=== PATIENT | female | born 1980 | race Caucasian/White ===

== ENCOUNTER 2019-12-28 00:13 | Outpatient (CLI) | payer BC, SELFPAY ==
[2019-12-28 17:44] LABS: SARS-CoV-2 RNA PCR Negative
== END 2019-12-28 00:14 | disposition home or self-care (01) ==
LOC: ANHCOVIDDT 00:14
PROVIDERS: PCP Family Medicine; Visit Provider Obstetrics & Gynecology
DX: Z01.812 Encounter for preprocedural laboratory examination (principal); Z20.828 Contact with and (suspected) exposure to other viral communicable diseases
CPT/HCPCS: 87635; C9803; U0003

== ENCOUNTER 2019-12-29 01:45 | Day surgery (SDC) | payer BC, SELFPAY ==
[2019-12-27 10:53] VITALS: BMI 22.3
--- NOTE | 2019-12-27 11:24 | PM.IMHP ---
H&P: HPI History of Present Illness Date/Time: 12/27/19 11:24 Chief complaint: Pelvic Pain/Irregular Bleeding/Anemia Narrative: Marlene Bryson is a 39 year old female who is admitted for laparoscopy hysteroscopy D&C she has had heavy bleeding with resultant anemia and was seen in the emergency department with a large multi-cystic lesion on the right. Her pain is severe and unrelenting she will undergo the above-named procedure. Risks and benefits reviewed Review of Systems Review of Systems: All systems reviewed & are unremarkable except as noted in HPI and below PMFSH Family History Family History Father Diabetes mellitus Mother Hypertension Social History Social History Smoking packs per day: 1 Smoking cigarettes per day: 20.0 Years smoked: 22 Smoking pack-years: 22.00 Smoking status: Current every day smoker Tobacco type: cigarettes Alcohol intake: never Spiritual care concerns: No Meds Home Medications and Allergies Home Medications Medication Instructions Recorded Confirmed Type alprazolam 1 mg tablet,extended 1 mg PO DAILY #30 tablet 08/18/19 12/27/19 Rx release 24 hr escitalopram oxalate 5 mg tablet 5 mg PO DAILY #90 tablet 08/22/19 12/27/19 Rx L.acid-L.casei-B.bif-B.jayjay-FOS 1 cap PO DAILY 12/27/19 12/27/19 History [Probiotic Blend] atenolol 50 mg PO DAILY PRN 12/27/19 12/27/19 History biotin 1 tablet PO DAILY 12/27/19 12/27/19 History cetirizine [Zyrtec] 10 mg PO DAILY 12/27/19 12/27/19 History cholecalciferol (vitamin D3) 125 mcg PO DAILY 12/27/19 12/27/19 History [Vitamin D3] ferrous sulfate [Iron (ferrous 325 mg PO DAILY 12/27/19 12/27/19 History sulfate)] omeprazole 40 mg PO DAILY 12/27/19 12/27/19 History tramadol 50 mg PO BID PRN 12/27/19 12/27/19 History Allergies Allergy/AdvReac Type Severity Reaction Status Date / Time Sulfa (Sulfonamide Allergy Unknown Skin Verified 12/27/19 10:54 Antibiotics) Reaction Exam Const: General: no acute distress Eyes: General: appearance normal, both eyes and all related structures Neck: Neck: supple and no JVD Thyroid: thyroid normal Resp: Effort & Inspection: normal respiratory effort Auscultation: clear to auscultation bilaterally Cardio: Rate: regular rate Rhythm: regular rhythm GI: Inspection: non-distended GI Palp: Yes Soft to palpation, No Tenderness to palpation present (GI) and No Guarding due to palpation present (GI) Auscultation: normal bowel sounds : General: Yes bladder normal to palpation External Female Exam: normal external appearance Speculum Exam - Cervix: normal appearance of the cervix Bimanual exam- vagina & uterus: uterine size normal and Cervical tenderness present Bimanual Exam- Adnexa, other: tender Skin: General skin exam: no rashes or lesions noted Extrem: General: normal to inspection and no edema Psych: Mental Status: mental status grossly normal Affect: normal affect Assessment and Plan Additional Plan Impression: Pelvic pain and heavy bleeding with resultant anemia Plan: Laparoscopy hysteroscopy dilatation curettage
[2019-12-29] VITALS (10 sets, daily range): BP systolic 80–121; BP diastolic 45–89; PULSE 56–103; RESP 10–20; TEMP 36.2–37.3; O2SAT 97–100
--- NOTE | 2019-12-29 06:52 | WPDHPUPDATE1 ---
History and Physical Update Update Date/Time: 12/29/19 06:52 History and Physical has been reviewed, including an updated exam of the patient. There are NO changes in the patient's condition. Risks, benefits, and alternatives have been discussed and questions answered. Patient agrees to proceed with procedure.
[2019-12-29] MEDS: ACETAMINOPHEN 500 MG TABLET 1000 MG PO (08:55)
--- NOTE | 2019-12-29 08:56 | WPDANESEPPF ---
Anes - Initial Pre Proc Eval Procedure: Operation Date: 12/29/19 10:00 Proposed Procedures p Diagnostic Laparoscopy, Hysteroscopy, Dilation And Curettage - Jairon Gauthier MD Date/Time: 12/29/19 08:56 Surgeon: Jairon Gauthier MD Pre Op Diagnosis: Pelvic Pain/Irregular Bleeding/Anemia Patient Data Age: 39 Gender: F Height: 1.63 m Weight: 60.9 kg Allergies Allergy/AdvReac Type Severity Reaction Status Date / Time Sulfa (Sulfonamide AdvReac Mild Rash Verified 12/29/19 08:48 Antibiotics) Home Medications Medication Instructions Recorded Confirmed Type alprazolam 1 mg tablet,extended 1 mg PO DAILY #30 tablet 08/18/19 12/29/19 Rx release 24 hr escitalopram oxalate 5 mg tablet 5 mg PO DAILY #90 tablet 08/22/19 12/29/19 Rx L.acid-L.casei-B.bif-B.jayjay-FOS 1 cap PO DAILY 12/27/19 12/29/19 History [Probiotic Blend] atenolol 50 mg PO DAILY PRN 12/27/19 12/29/19 History biotin 1 tablet PO DAILY 12/27/19 12/29/19 History cetirizine [Zyrtec] 10 mg PO DAILY 12/27/19 12/29/19 History cholecalciferol (vitamin D3) 125 mcg PO DAILY 12/27/19 12/29/19 History [Vitamin D3] ferrous sulfate [Iron (ferrous 325 mg PO DAILY 12/27/19 12/29/19 History sulfate)] omeprazole 40 mg PO DAILY 12/27/19 12/29/19 History tramadol 50 mg PO BID PRN 12/27/19 12/29/19 History hydrocodone-acetaminophen 1 tablet PO Q6H PRN #30 tablet 12/29/19 Rx Patient hx anesthesia problems: none Family hx anesthesia problems: none PMFSH Past Medical History Medical History (Updated 12/29/19 @ 08:53 by Jona Barrett DO) Anxiety GERD (gastroesophageal reflux disease) Palpitations Radiculopathy, cervical region Surgical History Surgical History (Updated 12/29/19 @ 08:53 by Jona Barrett DO) History of cholecystectomy Family History Family History Father Diabetes mellitus Mother Hypertension Social History Social History Smoking packs per day: 1 Smoking cigarettes per day: 20.0 Years smoked: 22 Smoking pack-years: 22.00 Smoking status: Current every day smoker Tobacco type: cigarettes Alcohol intake: never Spiritual care concerns: No Anes - Eval Final PreProcedure Day of Procedure 12/29/19 08:56 Patient weight: normal Heart: regular rate and rhythm Lungs: clear to auscultation and normal air movement Airway: Mallampati scale class III Neurological: alert and oriented Last oral intake: >/= 8 hours ASA classification: II Emergent: no Anesthetic plan: proceed Anesthesia type and monitoring: general ETT and standard monitoring Informed Consent: The patient's anesthetic plan and its attendant risks and benefits were discussed with the patient/family/POA. Questions were solicited and answers provided to the satisfaction of the patient/family/POA.
[2019-12-29] MEDS: KETOROLAC 15 MG/ML VIAL (*BKC) IV PUSH (09:06)
[2019-12-29] MEDS: LACTATED RINGERS 1,000 ML 30 ML IV CONT ×2 (09:11→11:35)
--- NOTE | 2019-12-29 10:47 | PM.PROC ---
Procedure Note - Detailed Date of procedure: 12/29/19 Pre-op diagnosis: Pelvic Pain/Irregular Bleeding/Anemia Surgeon: Jairon Gauthier MD Postop diagnosis pelvic pain / irregular bleeding with resultant anemia / right ovarian cyst / uterine polyp Procedure: Laparoscopic destruction of right ovarian cyst. Hysteroscopy/ polypectomy / dilatation and curettage EBL: 5Cc Anesthesia: General endotracheal Complications: None Findings: On laparoscopy normal-appearing tubes bilaterally. Large follicular cyst on the right which was drained of clear serous fluid. On hysteroscopy the uterine polyp was seen. The uterus sounded to 7cm. Thick endometrial tissue was seen. Normal plan fallopian tube ostia bilaterally. Description of procedure.: The patient was prepped draped normal sterile fashion placed in the dorsal lithotomy position. Under excellent general trach anesthesia weighted speculum placed in posterior fornix of the vagina. Anterior lip of the cervix was grasped with a single-tooth tenaculum. The Sellers's cannula was inserted to be used later for uterine manipulation. The bladder was emptied of 50cc of clear urine. His a weighted speculum was removed. The gloves were changed. An infraumbilical incision was made and the Veress needle passed in the abdomen. The abdomen was filled with CO2 gas [id number]. The 5mm trocar was advanced in the abdomen under direct visualization assuring injury. The patient was placed in Trendelenburg and a suprapubic incision made. 5mm trocar advanced in the abdomen under direct visualization assuring injury. The above findings were seen. Using total cautery on the right ovary ovary was opened in linear fashion drained of copious amounts of serous fluid. Hemostasis was assured. No other abnormalities were seen and irrigation was undertaken until clear. The lower site removed. The gas removed from the abdomen. Incisions closed with 4 glue. Attention was turned to the hysteroscopy. The uterus sounded to 7cm. Serial dilatation with fragmented dilators performed followed by passage of the 5mm visualizing hysteroscope. Normal saline was used as visualizing medium. The uterine polyp was seen at the fundus. This was grasped with a polyp forceps and removed piecemeal. No other abnormalities were seen. The uterus was then scraped over the entire 360? until a good grating sound was heard. When no further tissue could be removed instruments removed. All sponge, needle instrument counts were correct. There were no immediate complications the patient was awakened. She went to satisfactory to recovery in satisfactory condition. All sponge, needle, instrument counts were correct.
[2019-12-29] MEDS: ONDANSETRON INJ 4 MG/2 ML VIAL IV PUSH (11:33)
[2019-12-29] MEDS: fentaNYL CITRATE INJ (*CRX) 100 MCG/2 ML VIAL 25 MCG IV PUSH ×5 (11:35→11:57)
--- NOTE | 2019-12-29 12:43 | SUR.PHASEII ---
1230; PT AWAKE AND ALERT. SITTING IN RECLINER. DRINKING COFFEE. STATES PAIN 08/08. WILL EAT SOME CRACKERS THEN TAKE A PAIN PILL.
[2019-12-29] MEDS: oxyCODONE HCL (*CRX) 5 MG TAB IR PO (13:04)
--- NOTE | 2019-12-29 13:25 | SUR.PHASEII ---
1305; PT STATES SHE DOES NOT DO WELL WITH HYDROCODONE. CALLED DR ROWE. HE IS NOT IN THE HOSPITAL OR OFFICE. HE SAID TO CALL DR POSADA. 1320; DR POSADA PAGED.
--- NOTE | 2019-12-29 13:32 | SUR.PHASEII ---
SPOKE TO DR POSADA. HE WILL COME TO [facility] AND WRITE NEW SCRIPT. PT AND DENIA NOTIFIED
--- NOTE | 2019-12-29 13:54 | SUR.PHASEII ---
1350; DR POSADA GAVE PT A NEW PRESCRIPTION
== END 2019-12-29 13:53 | disposition home or self-care (01) ==
PROVIDERS: PCP Family Medicine; Visit Provider Obstetrics & Gynecology
PROC: 0UDB8ZZ Extraction of Endometrium, Via Natural or Artificial Opening Endoscopic (ICD-10-PCS; CPT 58558; principal; 2019-12-29 10:00)
DX: R10.2 Pelvic and perineal pain (principal); N93.9 Abnormal uterine and vaginal bleeding, unspecified; D64.9 Anemia, unspecified; N83.201 Unspecified ovarian cyst, right side; N84.0 Polyp of corpus uteri; K21.9 Gastro-esophageal reflux disease without esophagitis; F41.9 Anxiety disorder, unspecified; F17.210 Nicotine dependence, cigarettes, uncomplicated
CPT/HCPCS: 58558; 58662; 36415; 86850; 86900; 86901; 88305; A9270; J1100; J1170; J1885; J2250; J2405; J2704; J2710; J3010; J7030; J7120

== ENCOUNTER 2020-03-19 02:14 | Outpatient (CLI) | payer BC, SELFPAY ==
[2020-03-19 18:38] LABS: SARS-CoV-2 RNA PCR Negative
== END 2020-03-19 02:15 | disposition home or self-care (01) ==
LOC: ANHCOVIDDT 02:15
PROVIDERS: PCP Family Medicine; Visit Provider Obstetrics & Gynecology
DX: Z01.812 Encounter for preprocedural laboratory examination (principal); Z20.822 Contact with and (suspected) exposure to COVID-19
CPT/HCPCS: C9803; U0003; U0005

== ENCOUNTER 2020-03-19 10:42 | Outpatient (CLI) | payer BC, SELFPAY ==
[2020-03-19 11:09] LABS: Basophils Percent Auto 0.6 % (0.2-1.2); Eosinophils Percent Auto 0.1 % (0-4.4); Hematocrit 40.8 % (37.0-47.0); Hemoglobin 13.5 g/dL (12.0-15.0); Immature Granulocyte Absolute 0.02 K/mm3 (0.00-0.031); Immature Granulocyte Percent A 0.3 % (0-0.5); Lymphocytes Absolute Auto 1.94 K/mm3 (0.9-3.2); Lymphocytes Percent Auto 28.3 % (18.3-44.2); Mean Corpuscular HGB Conc 33.1 g/dl (32-36); Mean Corpuscular Hemoglobin 28.9 pg (26-34); Mean Corpuscular Volume 87.4 fl (80-100); Monocytes Absolute Auto 0.5 K/mm3 (0.1-0.6); Monocytes Percent Auto 6.6 % (2.6-8.5); Neutrophils Absolute Auto 4.4 K/mm3 (1.3-6.7); Neutrophils Percent Auto 64.1 % (45.5-73.1); Platelet Count Result 274 k/mm3 (150-375); Red Blood Count 4.67 M/mm3 (4.2-5.4); Red Cell Distribution Width 16.1 % (11.5-14.5); White Blood Count 6.9 K/mm3 (4.5-10.0)
== END 2020-03-19 10:43 | disposition home or self-care (01) ==
LOC: ANHSURGERY 10:44
PROVIDERS: PCP Family Medicine; Visit Provider Obstetrics & Gynecology
DX: D64.9 Anemia, unspecified (principal); Z01.812 Encounter for preprocedural laboratory examination
CPT/HCPCS: 36415; 85025; 86850; 86900; 86901

== ENCOUNTER 2020-03-22 00:49 | Day surgery (SDC) | payer BC, SELFPAY ==
[2020-03-15 15:58] VITALS: BMI 21.4
--- NOTE | 2020-03-19 10:58 | PM.IMHP ---
H&P: HPI History of Present Illness Date/Time: 03/19/20 10:58 Chief Complaint: pain Narrative: Marlene Bryson is a 39 year old female 3 para 2 who is admitted for robotic total vaginal tract me and bilateral salpingectomy. She has uterine prolapse pain dyspareunia irregular bleeding and has been refractory to other medical therapies. Risks and benefits reviewed including but not exclusive of , aspiration pneumonia, bleeding, transfusion, perforation to bowel, bladder, ureters, or other internal organs with need for open laparotomy. She had all questions answered. She asked to proceed Review of Systems Review of Systems: All systems reviewed & are unremarkable except as noted in HPI and below PMFSH Past Medical History Medical History Anxiety GERD (gastroesophageal reflux disease) Palpitations Radiculopathy, cervical region Surgical History Surgical History History of cholecystectomy Family History Family History Father Diabetes mellitus Mother Hypertension Social History Social History Smoking packs per day: 1 Smoking cigarettes per day: 20.0 Years smoked: 22 Smoking pack-years: 22.00 Smoking status: Current every day smoker Tobacco type: cigarettes Additional smoking assessment comments: 1ppd x 22 years cigarettes Alcohol intake: never Spiritual care concerns: No Meds Home Medications and Allergies Home Medications Medication Instructions Recorded Confirmed Type L.acid-L.casei-B.bif-B.jayjay-FOS 1 cap PO DAILY 12/27/19 03/15/20 History [Probiotic Blend] biotin 1 tablet PO DAILY 12/27/19 03/15/20 History cetirizine [Zyrtec] 10 mg PO DAILY 12/27/19 03/15/20 History cholecalciferol (vitamin D3) 125 mcg PO DAILY 12/27/19 03/15/20 History [Vitamin D3] ferrous sulfate [Iron (ferrous 325 mg PO BID 12/27/19 03/15/20 History sulfate)] omeprazole 40 mg PO DAILY 12/27/19 03/15/20 History alprazolam 1 mg tablet,extended 1 mg PO DAILY #30 tablet 01/30/20 03/15/20 Rx release 24 hr atenolol 50 mg PO DAILY 03/15/20 03/15/20 History escitalopram oxalate 5 mg PO DAILY 03/15/20 03/15/20 History potassium 20 mg PO DAILY 03/15/20 03/15/20 History tramadol 50 mg PO DAILY PRN 03/15/20 03/15/20 History tramadol 100 mg PO DAILY PRN 03/15/20 03/15/20 History Allergies Allergy/AdvReac Type Severity Reaction Status Date / Time Sulfa (Sulfonamide AdvReac Mild Rash Verified 03/15/20 15:29 Antibiotics) Exam Const: General: no acute distress Eyes: General: appearance normal, both eyes and all related structures Neck: Neck: supple and no JVD Thyroid: thyroid normal Resp: Effort & Inspection: normal respiratory effort Auscultation: clear to auscultation bilaterally Cardio: Rate: regular rate Rhythm: regular rhythm GI: Inspection: non-distended GI Palp: Yes Soft to palpation, No Tenderness to palpation present (GI) and No Guarding due to palpation present (GI) Auscultation: normal bowel sounds : General: Yes bladder normal to inspection External Female Exam: normal external appearance Speculum Exam - Vagina: normal appearance of the vagina Speculum Exam - Cervix: normal appearance of the cervix Bimanual exam- vagina & uterus: Uterus displaced (prolapse) Bimanual Exam- Adnexa, other: normal adnexae Skin: General skin exam: no rashes or lesions noted Extrem: General: normal to inspection and no edema Psych: Mental Status: mental status grossly normal Affect: normal affect Assessment and Plan Additional Plan impression: Pelvic pain/dyspareunia / irregular bleeding with anemia / uterine prolapse all refractory to medical therapy Plan: Robotic total vaginal hysterectomy and bilateral salpingectomies
[2020-03-22] VITALS (15 sets, daily range): BP systolic 91–146; BP diastolic 44–87; PULSE 50–85; RESP 10–18; TEMP 36.3–37.3; O2SAT 95–100
--- NOTE | 2020-03-22 06:30 | WPDHPUPDATE1 ---
History and Physical Update Update Date/Time: 03/22/20 06:30 History and Physical has been reviewed, including an updated exam of the patient. There are NO changes in the patient's condition. Risks, benefits, and alternatives have been discussed and questions answered. Patient agrees to proceed with procedure.
[2020-03-22] MEDS: ACETAMINOPHEN 500 MG TABLET 1000 MG PO (09:47)
[2020-03-22] MEDS: LACTATED RINGERS 1,000 ML 30 ML IV CONT ×3 (10:07→12:49)
[2020-03-22] MEDS: KETOROLAC 15 MG/ML VIAL (*BKC) IV PUSH (10:08)
--- NOTE | 2020-03-22 10:19 | WPDANESEPPF ---
Anes - Initial Pre Proc Eval Procedure: Operation Date: 03/22/20 11:30 Proposed Procedures p Robotic Assisted Total Vaginal Hysterectomy With Bilateral Salpingectomy - Jairon Gauthier MD Date/Time: 03/22/20 10:19 Surgeon: Jairon Gauthier MD Pre Op Diagnosis: Pelvic Pain, Dyspareunia,Irr.Bleeding, Anemia Patient Data Age: 39 Gender: F Height: 5 ft 4 in Weight: 61.6 kg Last Vital Signs Temp 99.1 F 03/22/20 10:05 Pulse 50 L 03/22/20 10:05 Resp 16 03/22/20 10:05 BP 91/44 L 03/22/20 10:05 Pulse Ox 100 03/22/20 10:05 Allergies Allergy/AdvReac Type Severity Reaction Status Date / Time Sulfa (Sulfonamide AdvReac Mild Rash Verified 03/22/20 09:41 Antibiotics) Home Medications Medication Instructions Recorded Confirmed Type L.acid-L.casei-B.bif-B.jayjay-FOS 1 cap PO DAILY 12/27/19 03/22/20 History [Probiotic Blend] biotin 1 tablet PO DAILY 12/27/19 03/22/20 History cetirizine [Zyrtec] 10 mg PO DAILY 12/27/19 03/22/20 History cholecalciferol (vitamin D3) 125 mcg PO DAILY 12/27/19 03/22/20 History [Vitamin D3] ferrous sulfate [Iron (ferrous 325 mg PO BID 12/27/19 03/22/20 History sulfate)] omeprazole 40 mg PO DAILY 12/27/19 03/22/20 History alprazolam 1 mg tablet,extended 1 mg PO DAILY #30 tablet 01/30/20 03/22/20 Rx release 24 hr atenolol 50 mg PO DAILY 03/15/20 03/22/20 History escitalopram oxalate 5 mg PO DAILY 03/15/20 03/22/20 History potassium 20 mg PO DAILY 03/15/20 03/22/20 History tramadol 50 mg PO DAILY PRN 03/15/20 03/22/20 History tramadol 50 mg tablet 50 mg PO Q6-8H PRN #60 tablet 03/20/20 Rx hydrocodone-acetaminophen [[place]] 1 tablet PO Q4H PRN #30 tablet 03/22/20 Rx Patient hx anesthesia problems: none Family hx anesthesia problems: none PMFSH Past Medical History Medical History Anxiety GERD (gastroesophageal reflux disease) Palpitations Radiculopathy, cervical region Surgical History Surgical History History of cholecystectomy Family History Family History Father Diabetes mellitus Mother Hypertension Social History Social History Smoking packs per day: 1 Smoking cigarettes per day: 20.0 Years smoked: 22 Smoking pack-years: 22.00 Smoking status: Current every day smoker Tobacco type: cigarettes Additional smoking assessment comments: 1ppd x 22 years cigarettes Alcohol intake: never Living arrangements: with family Spiritual care concerns: No Anes - Eval Final PreProcedure Day of Procedure 03/22/20 10:19 Patient weight: normal Heart: regular rate and rhythm Lungs: clear to auscultation Airway: Mallampati scale Neurological: alert and oriented Last oral intake: >/= 8 hours ASA classification: II Emergent: no Anesthetic plan: proceed Anesthesia type and monitoring: general ETT and standard monitoring Informed Consent: The patient's anesthetic plan and its attendant risks and benefits were discussed with the patient/family/POA. Questions were solicited and answers provided to the satisfaction of the patient/family/POA.
[2020-03-22] MEDS: ceFAZolin 2 GM/D5W 50 ML 2 GM/50 ML BAG IVPB (10:25)
--- NOTE | 2020-03-22 11:24 | P.OP_ITS ---
Procedure Note - Detailed Date of procedure: 03/22/20 Pre-op diagnosis: Pelvic Pain, Dyspareunia,Irr.Bleeding, Anemia Surgeon: Jairon Gauthier MD Postop diagnosis: Pelvic pain/dyspareunia/irregular bleeding resulting in anemia Procedure: Robotic total vaginal hysterectomy and bilateral salpingectomies Anesthesia: General endotracheal EBL: 20cc Complications:none Findings: Enlarged uterus/normal-appearing tubes ovaries Description of procedure: The patient was prepped and draped in the normal st erile fashion placed in the dorsal lithotomy position. Under excellent general endotracheal anesthesia weighted speculum was placed in the posterior fornix of vagina. Anterior lip of the cervix was grasped with a single-tooth tenaculum. Uterus sounded to9.5cm. Serial dilatation was performed followed by passes the 8. NIRALI and the 3. Cold cup. Next the 16 [place] catheter was placed in a bladde r drained of clear urine. The gloves were changed. A supraumbilical incision made in the Veress needle passed in the abdomen. Abdomen filled with CO2 gas [id number]. Five 8mm trocar advanced in the abdomen the downside visualized. No injury seen the patient placed in Trendelenburg and right and left lateral quadrant incisions made. 8mm trocars were advanced under direct visualization assuring no injury. A right upper quadrant incision made the 8mm trocar advanced under direct visualization assuring no injury. The robot was docked. Attention was turned to the console. The left round ligament was grasped, burned, cut. Anteriorly a bladder flap was formed by sharply dissecting the peritoneum and reflecting the bladder caudally to the opposite round ligament which was clamped, burned, cut. Next the left fallopian tube was grasped and it was dissected away from the ovary ovary complex. Following this the right fallopian tube was removed by sharply dissecting it from the underlying ovarian complex. Next the last left utero-ovarian ligament was skeletonized to conserve left ovary. This was clamped, burned, cut and brought to the level of the previously cut round ligament. In like fashion conserving the right ovary utero-ovarian ligament was clamped, burned, cut and brought to the level of previously cut round ligament. Next the cardinal and broad ligaments on the left were serially skeletonized brought down the lateral edge of the uterus they were clamped, burned, cut. This was taken down to the level of the uterine vessels which were large and tortuous. These were individually clamped,, cut. Next the cardinal and broad ligaments on the right wrist serially skeletonized and clamped, burned, cut and brought down the lateral edge of the uterus. The uterine vessels then individually clamped, burned, cut. Blanching the uterus was seen. A colpotomy incision was made in the uterus cervix and tubes removed through the vagina. Blood loss estimated [id number]. The vagina was closed with continuous running 0V lock from lateral edge to lateral edge to the midline. Irrigation undertaken to clear. All pedicles appeared dry. The robot was undocked. The gas removed from the abdomen. The trocars removed from the abdomen and the incisions closed with 4 Monocryl glue. The patient was awakened. All sponge, needle, instrument counts were correct. There were no immediate complications
[2020-03-22] MEDS: fentaNYL CITRATE INJ (*CRX) 100 MCG/2 ML VIAL 25 MCG IV PUSH ×5 (11:47→13:09)
[2020-03-22] MEDS: ONDANSETRON INJ 4 MG/2 ML VIAL IV PUSH (11:49)
[2020-03-22] MEDS: HYDROmorphone HCL INJ (*CRX) 1 MG/ML SYR 0.5 MG IV PUSH ×4 (12:14→12:52)
[2020-03-22] MEDS: SCOPOLAMINE 1.5 MG PATCH TRANSDERM (12:32)
[2020-03-22] MEDS: diphenhydrAMINE HCl INJ 50 MG/ML VIAL 25 MG IV PUSH (12:33)
--- NOTE | 2020-03-22 13:03 | SUR.PHASEI ---
[id number] sbar faxed floor notified
[2020-03-22] MEDS: DEXTROSE 5%/LACTATED RINGERS 1,000 ML 125 ML IV CONT (13:49)
[2020-03-22] MEDS: KETOROLAC 30 MG/ML VIAL (*BKC) IV PUSH (13:55)
--- NOTE | 2020-03-22 16:10 | PC.NURSE ---
Addendum entered by Sherrell Salter RN 03/22/20 16:14: Talked to Torsten Lubin at 1510 and orders were recieved at that time not the time the note was put in the computer. Original Note: Dr. Torsten Lubin notified that patient would like to go home tonight and that she can not take [place] for pain but she can take Percocet. Orders recieved to change pain meds and that if she would like to go home tonight she needs to be tolerating food, po medication and urinating on her own. Catheter maybe removed whenever she wants it out.
[2020-03-22] MEDS: oxyCODONE/ACETAMINOPHEN (*CRX) 5-325 MG TABLET 1 TABLET PO ×2 (16:23→17:54)
--- NOTE | 2020-03-22 16:31 | PC.NURSE ---
Dr. Giraldo notified about scripts for pain medication so patient could go home tonight. He will electronically send her medications into the pharmacy from the office.
--- NOTE | 2020-03-22 17:55 | PC.NURSE ---
patient called out stating she is ready to go, I told her I would start on discharge papers but she needed to wait till 7 to go home because she needed to void again. She stated she was in pain and needed more pain meds. Upon walking in the room the patient was disconnecting her IV fluids and turning off her IV pump. She states she is dressed and ready to go. I told her I was going to work on paperwork but she called out for pain meds so I couldn't, I told her I would print her papers as soon as possible.
== END 2020-03-22 18:10 | disposition home or self-care (01) ==
LOC: ANHSURGERY 09:32 → ANHOB2 13:22
PROVIDERS: Family Provider Obstetrics & Gynecology; PCP Family Medicine; Visit Provider Obstetrics & Gynecology
PROC: (CPT 58552; principal; 2020-03-22 11:30)
DX: R10.2 Pelvic and perineal pain (principal); N94.10 Unspecified dyspareunia; D64.9 Anemia, unspecified; N93.9 Abnormal uterine and vaginal bleeding, unspecified; N83.8 Other noninflammatory disorders of ovary, fallopian tube and broad ligament; N81.4 Uterovaginal prolapse, unspecified; K21.9 Gastro-esophageal reflux disease without esophagitis; F17.210 Nicotine dependence, cigarettes, uncomplicated
CPT/HCPCS: 58552; S2900; 88307; 99199; A9270; J0330; J0690; J1170; J1200; J1885; J2250; J2405; J2704; J3010; J7030; J7120; J7121

== ENCOUNTER 2020-12-31 16:22 | Outpatient (CLI) | payer OTHER, SELFPAY ==
--- NOTE | ~2020-12-31 | MR_ITS ---
EXAMINATION: MR cervical spine wo con EXAM DATE: 12/31/2020 17:32 INDICATION: M54.2 - Cervicalgia. TECHNIQUE: Multi-sequential, multiplanar MR images of the cervical spine were obtained without contra st. Axial T2, axial T2 MERGE sequence. Sagittal T1, T2, T2 fat saturation images also obtained. Th ere is no prior study for comparison. FINDINGS: Mild mid cervical disc bulges. The vertebral bodies are aligned in the AP dimension. Verte bral body and disc heights are well-maintained. There are no suspicious marrow signal abnormalities. The spinal cord signal intensity and intrinsic morphology is normal. Cervicomedullary junction is nor mal in appearance. Level by level evaluation: C2-C3: Disc does not extend beyond the endplate margin. Uncovertebral joint arthropathy: None. Facet joint arthropathy: Mild bilateral. Neural foraminal stenosis: No stenosis. Central canal stenosis: No stenosis. C3-C4: There is a minimal diffuse disc bulge. Uncovertebral joint arthropathy: None. Facet joint arthropathy: Mild bilateral. Neural foraminal stenosis: No stenosis. Central canal stenosis: No stenosis. C4-C5: Disc does not extend beyond the endplate margin. Uncovertebral joint arthropathy: Mild. Facet joint arthropathy: Mild. Neural foraminal stenosis: No stenosis. Central canal stenosis: No stenosis. C5-C6: There is a mild diffuse disc bulge. Uncovertebral joint arthropathy: Mild. Facet joint arthropathy: Mild. Neural foraminal stenosis: No stenosis. Central canal stenosis: No stenosis. C6-C7: There is a mild diffuse disc bulge. Uncovertebral joint arthropathy: Mild. Facet joint arthropathy: Mild. Neural foraminal stenosis: No stenosis. Central canal stenosis: No stenosis. C7-T1: Disc does not extend beyond the endplate margin. Uncovertebral joint arthropathy: None. Facet joint arthropathy: Mild. Neural foraminal stenosis: No stenosis. Central canal stenosis: No stenosis. IMPRESSION: Mild arthropathy without stenosis. Reviewed, dictated and finalized at location A.
== END 2020-12-31 16:23 | disposition home or self-care (01) ==
PROVIDERS: PCP Family Medicine; Visit Provider Physician Assistant
DX: M54.2 Cervicalgia (principal)
CPT/HCPCS: 72141

== ENCOUNTER 2022-11-30 09:00 | Outpatient (CLI) | payer OTHER, SELFPAY ==
--- NOTE | ~2022-11-30 | MM_ITS ---
EXAMINATION: MM screening [facility] BI w dorina HISTORY: Screening mammogram TECHNIQUE: Craniocaudal and mediolateral oblique 3-D tomosynthesis images were obtained and synthetic 2-D images were generated. CAD analysis was submitted and interpreted. COMPARISON: None, baseline BREAST PARENCHYMAL COMPOSITION: The breasts are extremely dense, which lowers the sensitivity of mamm ography. FINDINGS: RIGHT BREAST: There is low-density obscured mass in the far posterior third of the breast in line wit h the nipple axis. LEFT BREAST: There is an obscured low density mass in the middle/posterior third of the slightly uppe r/inner breast. IMPRESSION: 1. Bilateral breast masses. 2. Additional mammographic views and possible breast ultrasound are recommended to evaluate the breas t masses and establish a baseline given that this is the first mammographic examination. BI-RADS Category 0: Incomplete: Needs additional imaging evaluation. Reviewed, dictated and finalized at location A. IMPRESSION: 1. Bilateral breast masses. 2. Additional mammographic views and possible breast ultrasound are recommended to evaluate the breast masses and establish a baseline given that this is the first mammographic examination. BI-RADS Category 0: Incomplete: Needs additional imaging evaluation.
== END 2022-11-30 09:01 | disposition home or self-care (01) ==
LOC: ANHIMG 09:02
PROVIDERS: PCP Family Medicine; Visit Provider Family Medicine
DX: Z12.31 Encounter for screening mammogram for malignant neoplasm of breast (principal); R92.8 Other abnormal and inconclusive findings on diagnostic imaging of breast
CPT/HCPCS: 77063; 77067

== ENCOUNTER 2022-12-23 11:54 | Outpatient (CLI) | payer OTHER, SELFPAY ==
--- NOTE | ~2022-12-23 | MMUS_ITS ---
EXAMINATION: MM diagnostic [facility] BI w dorina, US breast BI complete HISTORY: 11/30/2022 screening mammogram report of bilateral breast masses TECHNIQUE: Additional 3-D tomosynthesis images of the breasts were performed and synthetic 2-D images were generated. CAD analysis was submitted and interpreted. High resolution bilateral complete breas t ultrasound examination including all 4 quadrants and subareolar areas was performed. COMPARISON: 11/30/2022 bilateral screening mammogram FINDINGS: MAMMOGRAPHIC FINDINGS: No suspicious solid mass or architectural distortion is noted. Occasional mario gn appearing probable cysts are noted as follows: Right breast: 1.7 x 2 cm circumscribed low-density radiopacity with halo sign is noted posteriorly in the central u pper right breast; the mammographic appearance is benign, most likely a cyst. 7 x 8 mm circumscribed low-density opacity with halo sign in the posterior mid to upper outer right b reast Left breast: 8.8 x 10 mm circumscribed low-density opacity with halo sign is noted posteriorly in the central uppe r left breast, benign in appearance, likely a cyst. Approximately 1.5-2 cm circumscribed opacity in the upper central left breast with halo sign, likely a cyst. ULTRASOUND: Multiple bilateral breast cysts, circumscribed, sonolucent, with through transmission posterior enhan cement. Lower central the right 12:00 6 cm from the nipple measures up to 1.8 x 1.3 x 1.9 cm. The largest on the left situated at 2:00 3 cm from the nipple, measuring up to 6.8 x 17.8 mm. No suspicious mass or shadowing of either breast is detected. IMPRESSION: 1. Bilateral benign cysts; no mammographic sonographic evidence of malignancy 2. Routine annual mammographic screening is recommended. BI-RADS Category 2: Benign finding(s). Reviewed, dictated and finalized at location A. IMPRESSION: 1. Bilateral benign cysts; no mammographic sonographic evidence of malignancy 2. Routine annual mammographic screening is recommended. BI-RADS Category 2: Benign finding(s).
== END 2022-12-23 11:55 | disposition home or self-care (01) ==
LOC: ANHIMG 11:57
PROVIDERS: PCP Family Medicine; Visit Provider Family Medicine
DX: R92.8 Other abnormal and inconclusive findings on diagnostic imaging of breast (principal); N60.01 Solitary cyst of right breast; N60.02 Solitary cyst of left breast
CPT/HCPCS: 76641; 77062; 77066; G0279